=== PATIENT | female | born 1935 | race Caucasian/White ===

== ENCOUNTER 2023-10-18 13:47 | Emergency (ER) | payer MEDICARE, SELFPAY ==
[2023-10-18] VITALS (7 sets, daily range): BP systolic 153–172; BP diastolic 54–74; BMI 19.9
[2023-10-18 14:11] LABS: % Basophils 0.9 % (0-2); % Eosinophils 1.2 % (0-6); % Immature Granulocytes 0.2 % (0-0.5); % Lymphocytes 13.8 % (20.5-51.1); % Monocytes 8.4 % (1.7-9.3); % Neutrophils 75.5 % (42.2-75.2); Absolute Basophils 0.1 10^3/uL (0-0.2); Absolute Eosinophils 0.1 10^3/uL (0-0.7); Absolute Lymphocytes 0.9 10^3/uL (1.2-3.4); Absolute Monocytes 0.6 10^3/uL (0.1-0.6); Hematocrit 36.4 % (37.0-47.0); Hemoglobin 11.9 g/dL (12.0-16.0); Mean Corp Hgb Conc. 32.7 g/dL (33.0-37.0); Mean Corpuscular Hgb 29.2 pg (27.0-31.0); Mean Corpuscular Volume 89.4 fL (81.0-99.0); Mean Platelet Volume 9.1 fL (7.4-10.4); Nucleated Red Blood Cells % 0 %; Platelet Count 267 10^3/uL (130-400); Red Blood Cell Count 4.07 10^6/uL (4.20-5.40); Red Cell Dist. Width 14.5 % (11.5-14.5); White Blood Cell Count 6.7 10^3/uL (4.8-10.8)
[2023-10-18 14:37] LABS: ALT (SGPT) 17 U/L (0-35); AST (SGOT) 27 U/L (14-36); Albumin 4.1 g/dl (3.5-5.0); Alkaline Phosphatase 97 U/L (38-126); Blood Urea Nitrogen 27 mg/dl (7-17); Calcium 9.4 mg/dl (8.4-10.2); Carbon Dioxide 32 mmol/L (22-30); Chloride 99 mmol/L (98-107); Estimated Creatinine Clearance 43 ml/min; Glucose 182 mg/dl (70-99); Potassium 4.1 mmol/L (3.5-5.1); Sodium 138 mmol/L (135-145); Total Bilirubin 0.7 mg/dl (0.2-1.3); Total Protein 6.6 g/dl (6.3-8.2); eGFR > 60.00
[2023-10-18 14:45] LABS: Troponin I < 0.012 ng/ml
--- NOTE | 2023-10-18 15:29 | ED.GENMED ---
History of Present Illness
General
Chief Complaint: Chest Pain
Source: patient and family
Exam Limitations: none
Time Seen by Provider: 10/18/23 15:05
Nursing documentation reviewed up to this point in time: agreed with
History of Present Illness
History of Present Illness:
Patient is an 80-year-old female who presents to the ER from [facility]. Son reports he was called by staff there stated patient send chest pain for the past several days.
Patient is awake alert she is very confused she has no complaints presently.
Review of Systems
Review of Systems
Allergies reviewed?: Yes
Unable to obtain full review of systems at this time due to: dementia
Other source history: residential
All Other Systems: ROS reviewed and negative except as documented in HPI and ROS
Cardiac: Reports chest pain ((chest pain ) as per staff at nursing facility and as per son)
Phy Exam
General Physical Exam
General Presentation: no apparent distress
General age: appears stated age
General Skin: warm and dry
General Habitus: elderly
General Mental: confused
Cardiovascular Exam
Cardiovascular Exam: regular rate/rhythm, no murmur and normal peripheral pulses
Pulmonary Exam
Pulmonary Exam: lungs clear and no respiratory distress
Neurological Exam
Neurological Exam: alert and oriented x3
Musculoskeletal Exam
Musculoskeletal Exam: full ROM
Skin Exam
Skin Exam: normal color and warm/dry
Psychiatric Exam
Psychiatric Exam: normal mood/affect
Scores
Heart Score for Chest Pain Patients
STEMI patient?: Not applicable
Course
Orders/Labs/Results
Orders:
Orders
10/18/23 13:49
Electrocardiogram (*1) Urgent
Reason for Study: Chest Pain
Cardiac Monitoring- Treatment ONCE
EKG- Treatment ONCE
10/18/23 13:59
Complete Blood Count/With Diff Urgent
Comprehensive Metabolic Panel Urgent
Troponin I Urgent
10/18/23 15:06
Chest [CR Chest - 2 Views ] Urgent
Comment:
Reason For Exam: cp
10/18/23 16:26
EKG- Treatment ONCE
10/18/23 16:31
Troponin I Urgent
10/18/23 16:45
Electrocardiogram (*1) Stat
Reason for Study: Other
Other Reason for Exam: chest pain
Abnormal Lab Results
10/18/23
13:59
RBC 4.07 L 10^6/uL
(4.20-5.40)
Hgb 11.9 L g/dL
(12.0-16.0)
Hct 36.4 L %
(37.0-47.0)
MCHC 32.7 L g/dL
(33.0-37.0)
Absolute Lymphs (auto) 0.9 L 10^3/uL
(1.2-3.4)
Neutrophils % 75.5 H %
(42.2-75.2)
Lymphocytes % 13.8 L %
(20.5-51.1)
Carbon Dioxide 32 H mmol/L
(22-30)
BUN 27 H mg/dl
(7-17)
Glucose 182 H mg/dl
(70-99)
10/18/23 13:59
10/18/23 13:59
Vital Signs
Initial and Last Documented VS:
Initial Vital Signs
Temp Pulse Resp BP Pulse Ox
97.8 F 89 18 153/74 97
10/18/23 13:50 10/18/23 13:50 10/18/23 13:50 10/18/23 13:50 10/18/23 13:50
Last Documented Vital Signs
Temp Pulse Resp BP Pulse Ox
97.8 F 62 18 170/58 96
10/18/23 13:50 10/18/23 17:15 10/18/23 17:15 10/18/23 17:15 10/18/23 17:00
MDM/Problems Addressed
MDM/Problems Addressed:
Patient is an 88-year-old female from memory care unit sent for evaluation of chest pain. Apparently as per son /statff at [place] , patient was complaining of chest pain off and on for the past couple days. I tried to speak with someone at nursing
facility but there was no answer. Patient is awake alert she has no complaints now but she is confused. Because of history of dementia patient was monitored here and had 2 negative cardiac troponins. She has no history of IN and is documented has
a history of CAD. She had no complaint of chest pain here in the ER when asked directly. Her x-rays negative for acute findings. She has no complaints of back pain though on x-ray of the chest there is a moderate compression deformity of lower
thoracic vertebral body likely T1 or T12 but chronic most likely low age-indeterminate. She will be placed on the hotline. I did give formation to son who will take patient to the cardiology office and does her appointments.
Chronic conditions affecting care:
dementia
*Radiology
Radiology exam reviewed: radiology read reviewed
*Pulse Oximetry
Patient hypoxic: no
*EKG
Interpreted by ED Provider?: Yes
Interpretation: normal
Comparison EKG: no comparison EKG present
Heart Rate: 67
Rate: normal
Rhythm: sinus
Ischemia: no ischemia
*Critical Care Note
Total Time (30-74mins, 75-104mins- exclusive of procedures): Not Applicable
ED Attending Note
-
Portions of this chart may have been created with voice recognition software.� Occasional wrong word or��sound alike� substitutions may have occurred due to the inherent limitations of voice recognition software.
Discharge Plan
Departure
Patient Disposition: Home (Routine Discharge)
Date of Disposition: 10/18/23
Time of Disposition: 18:02
Patient with high blood pressure during this ER visit?: Yes
Condition: Fair
Covid-19: Not Applicable
Discharge Problem:
Chest pain
Instructions: Chest Pain CBC Follow Up, BLOOD PRESSURE
Referrals:
Carline Laird DO [Family Provider] -
Angel Mondragon MD [Active] -
Activity Restrictions/Additional Instructions:
As discussed, follow-up with cardiology for reevaluation. If you do not receive a phone call from cardiology please call them to schedule an appt as soon as possible for evaluation.
Return if any worsening of symptoms
Interventions
Interventions:
*Risk Screen - Suicide Last Done: 10/18/23 13:50
*General Assessment Last Done: 10/18/23 13:50
*Neglect/Abuse Screening Last Done: 10/18/23 13:50
ED- Fall Risk Assessment Last Done: 10/18/23 13:52
*ED COVID-19 Vaccine History Last Done: 10/18/23 13:50
ED- Cardiac Assessment Last Done: 10/18/23 13:50
ED- Pulmonary Assessment Last Done: 10/18/23 13:52
ED-Skin Assessment Last Done: 10/18/23 13:52
Discharge Date and Time
Print Language: HAITIAN
[2023-10-18 17:22] LABS: Troponin I < 0.012 ng/ml
== END 2023-10-18 18:27 | disposition home or self-care (01) ==
LOC: EMR 13:47
PROVIDERS: Emergency Medicine; Nurse Practitioner; EMERGENCY PHYSICIAN Student in an Organized Health Care Education/Training Program; FAMILY PHYSICIAN Hospitalist
DX: R07.89 Other chest pain (principal); F03.90 Unspecified dementia, unspecified severity, without behavioral disturbance, psychotic disturbance, mood disturbance, and anxiety; I25.10 Atherosclerotic heart disease of native coronary artery without angina pectoris
CPT/HCPCS: 99285; 71046; 80053; 84484; 85025; 93005

== ENCOUNTER 2023-12-28 00:11 | Emergency (ER) | payer MEDICARE, SELFPAY ==
[2023-12-28 00:13] VITALS: BP 141/58
--- NOTE | 2023-12-28 00:49 | ED.GENMED ---
History of Present Illness
General
Chief Complaint: Fall
Source: patient
Exam Limitations: dementia
Time Seen by Provider: 12/28/23 00:31
Nursing documentation reviewed up to this point in time: agreed with
History of Present Illness
History of Present Illness:
88-year-old dementia patient from a dementia unit found on the ground details are unclear here there is no overt signs of trauma follows simple commands states she believes it is 1941 no pain with range of motion of the hips
Past History
Past History
ED Past Medical History: Other (Dementia)
Social History
Tobacco: Other
Alcohol: Other
Drug: Other
Personal: Other
Living: detention
Employment: Not employed
Family History
Family History: Unable to obtain (Dementia)
Review of Systems
Review of Systems
Unable to obtain full review of systems at this time due to: dementia
All Other Systems: Not applicable
Phy Exam
Physical Exam
Physical Exam:
Physical Exam
General: Pleasant cooperative elderly female
Neck: No tongue bite no posterior neck
Heart: Rate is regular
Lungs: no acute respiratory distress. clear bilaterally
Abdomen: Nontender
Neuro: Moves all extremities no facial palsy think since 1941
Skin: no rash
Psychiatric: Affect is flat cooperative
Extremities: No pain with range of motion of the head
Course
Orders/Labs/Results
Orders:
Orders
12/28/23 00:44
CT Cervical Spine W/o Iv Contr Urgent
Comment:
Reason For Exam: fall
CT Head W/o Iv Contrast Urgent
Comment:
Reason For Exam: fall
Cardiac Monitoring- Treatment ONCE
Vital Signs
Initial and Last Documented VS:
Initial Vital Signs
Temp Pulse Resp BP Pulse Ox
99.5 F 76 16 141/58 97
12/28/23 00:13 12/28/23 00:13 12/28/23 00:13 12/28/23 00:13 12/28/23 00:13
Last Documented Vital Signs
Temp Pulse Resp BP Pulse Ox
99.5 F 76 16 141/58 97
12/28/23 00:13 12/28/23 00:13 12/28/23 00:13 12/28/23 00:13 12/28/23 00:13
MDM/Problems Addressed
Differential Diagnosis Includes:
Fall occult trauma dementia
MDM/Problems Addressed:
Found on the ground
Chronic conditions affecting care: Neurological disorder
Acute Exacerbation and/or Progression of Chronic Illness: Neurological disorder
*Radiology
Radiology exam reviewed: radiology read reviewed
*Pulse Oximetry
Patient hypoxic: no
*Critical Care Note
Total Time (30-74mins, 75-104mins- exclusive of procedures): Not Applicable
Update Note
Update Note:
Update, CT reports noted
ED Attending Note
-
Portions of this chart may have been created with voice recognition software.� Occasional wrong word or��sound alike� substitutions may have occurred due to the inherent limitations of voice recognition software.
Discharge Plan
Departure
Patient Disposition: Penitentiary/SNF
Date of Disposition: 12/28/23
Time of Disposition: 01:55
Patient with high blood pressure during this ER visit?: No
Condition: Good
Discharge Problem:
Fall, Dementia
Instructions: Preventing falls in adults
Referrals:
Carline Laird DO [Family Provider] -
Interventions
Interventions:
*Risk Screen - Suicide Last Done: 12/28/23 00:13
*General Assessment Last Done: 12/28/23 00:13
*Neglect/Abuse Screening Last Done: 12/28/23 00:13
Discharge Date and Time
Print Language: MAORI
[2023-12-28 05:24] VITALS: BP 122/79
== END 2023-12-28 05:26 ==
LOC: EMR 00:11
PROVIDERS: EMERGENCY PHYSICIAN Emergency Medicine; FAMILY PHYSICIAN Hospitalist
DX: Z03.89 Encounter for observation for other suspected diseases and conditions ruled out (principal); W19.XXXA Unspecified fall, initial encounter; Y92.89 Other specified places as the place of occurrence of the external cause; F03.90 Unspecified dementia, unspecified severity, without behavioral disturbance, psychotic disturbance, mood disturbance, and anxiety; I25.10 Atherosclerotic heart disease of native coronary artery without angina pectoris; I10 Essential (primary) hypertension; E78.5 Hyperlipidemia, unspecified; F32.A Depression, unspecified
CPT/HCPCS: 99284; 70450; 72125

== ENCOUNTER 2024-02-09 14:45 | Inpatient (IN) | payer MEDICARE, SELFPAY ==
[2024-02-09 10:05] VITALS: BP 124/68
--- NOTE | 2024-02-09 10:20 | ED.GENMED ---
ED Provider Triage
<Josh Yeung PA-C - Last Filed: 02/09/24 10:22>
-
Patient seen by provider in Triage?: Seen in Triage
88-year-old female presents for memory care unit via EMS with complaints of right knee pain. She had difficulty ambulating secondary to pain. No reported fall
Patient limited historian but does have pain about the right knee. Vital signs are stable recommended further evaluation with an x-ray
History of Present Illness
<Josh Yeung PA-C - Last Filed: 02/09/24 10:22>
General
Chief Complaint: Musculo-Skeletal Complaint
Time Seen by Provider: 02/09/24 11:08
<Rylee Granda HEAD OF ACQUISITIONS - Last Filed: 02/09/24 16:01>
General
Source: patient, ambulance crew and assisted records
Exam Limitations: dementia
Nursing documentation reviewed up to this point in time: agreed with
History of Present Illness
History of Present Illness:
88-year-old female from [facility] memory care unit presents for inability to weight-bear on her right leg noted by son yesterday. No known injury or fall. Patient is a poor historian.
Past History
<Josh Yeung PA-C - Last Filed: 02/09/24 10:22>
Past History
ED Past Medical History: Other (Dementia)
Social History
Tobacco: Other
Alcohol: Other
Drug: Other
Personal: Other
Living: assisted
Employment: Not employed
Family History
Family History: Unable to obtain (Dementia)
<Rylee Granda HEAD OF ACQUISITIONS - Last Filed: 02/09/24 16:01>
Past History
ED Past Medical History: CAD, HTN and MS
ED Past Surgical History: Appendectomy
Social History
Tobacco: Non-smoker
Alcohol: None
Review of Systems
<Rylee Granda HEAD OF ACQUISITIONS - Last Filed: 02/09/24 16:01>
Review of Systems
Allergies reviewed?: Yes
All Other Systems: ROS reviewed and negative except as documented in HPI and ROS
Constitutional: Denies fever
Musculoskeletal: Reports other (pain right knee, right hip area)
Skin: Reports no symptoms
Phy Exam
<Rylee Granda HEAD OF ACQUISITIONS - Last Filed: 02/09/24 16:01>
Physical Exam
Physical Exam:
GENERAL: No acute distress. A&Ox3.
CONSTITUTIONAL: Afebrile.
EYES: PERRL, conjunctivae normal
Neck: Supple
ENMT: moist mucus membranes, Pharynx nl
RESPIRATORY: Regular respirations, nonlabored, lungs clear.
CARDIOVASCULAR: Regular rate and rhythm, no murmurs, no rubs.
GI: Soft, nontender, normal BS
MUSCULOSKELETAL: No swelling, warmth or tenderness to palpation of the right knee but pt unable to actively flex the knee without pain pointing to knee area. When passively lifting the leg, complains of pain in the right groin as well as the knee.
Pelvic rock elicits no pain. No edema. Well perfused.
SKIN: Warm, dry, pink
PSYCH: Normal mood and affect. Well kept, interactive and appropriate
NEUROLOGIC: Awake, alert and disoriented. No focal neurological deficits
Course
<Josh eYung PA-C - Last Filed: 02/09/24 10:22>
Orders/Labs/Results
Orders:
Orders
02/09/24 10:20
CR Knee- Right 4 Or More View* Urgent
Comment:
Reason For Exam: pain
02/09/24 11:56
CT Pelvis W/o Iv Contrast Urgent
Comment:
Reason For Exam: pain R groin with lifting leg, walking,pt demented
02/09/24 13:30
CR Chest - 2 Views Urgent
Comment:
Reason For Exam: hip fracture
02/09/24 13:32
ORTHOPEDIC CONSULT Urgent
Consulting Provider: Hermes Portillo
Was physician already notified: Yes
Reason for consult: R femoral neck fx
02/09/24 13:42
Complete Blood Count/With Diff Urgent
Comprehensive Metabolic Panel Urgent
Prothrombin Time Urgent
02/09/24 14:09
EKG [Electrocardiogram (*1)] Routine
Reason for Study: PreOp
02/09/24 14:11
Admit/Transfer Patient As Directed
Co-Sign Provider:
Level of Care: Inpatient admission
Assign to:: Medical/Surgical
Physician / Group: Lorie Owen
Diagnosis: right hip fracture
Reason for Hospitalization: right hip fracture
Expected length of stay greater than two midnights?: Yes
ELOS- Estimated Length of Stay in days: 3
I certify the patient meets the requirements for IP care: Yes
PRN Pain Medication Management As Directed
May give lesser potent ordered pain med per pt: Yes
preference::
Protocol:: Medication orders for pain may be administered in a
manner that supports deferring to patient preference
when the pt is:
- Requesting an ordered lesser potent pain medication.
Least to most potent pain medications are defined
as: acetaminophen < NSAID < tramadol < opioids
(morphine, oxycodone, hydromorphone).
- Requesting a lesser dose of the same medication IF
ORDERED.
- Requesting a less intrusive route of administration
if both routes are prescribed by the provider (PO <
IV).
02/09/24 14:12
Code Status As Directed
Resuscitation Status: Full Code
Abnormal Lab Results
02/09/24
13:42
WBC 12.4 H 10^3/uL
(4.8-10.8)
RBC 4.09 L 10^6/uL
(4.20-5.40)
Hct 36.4 L %
(37.0-47.0)
RDW 17.4 H %
(11.5-14.5)
Abs Immat Gran (auto) 0.1 H 10^3/uL
(0-0.05)
Absolute Neuts (auto) 11.2 H 10^3/uL
(1.4-6.5)
Absolute Lymphs (auto) 0.5 L 10^3/uL
(1.2-3.4)
Neutrophils % 90.8 H %
(42.2-75.2)
Lymphocytes % 3.6 L %
(20.5-51.1)
Chloride 97 L mmol/L
(98-107)
Carbon Dioxide 31 H mmol/L
(22-30)
BUN 19 H mg/dl
(7-17)
Glucose 133 H mg/dl
(70-99)
02/09/24 13:42
02/09/24 13:42
Vital Signs
Initial and Last Documented VS:
Initial Vital Signs
Temp Pulse Resp BP Pulse Ox
99.2 F 88 16 124/68 96
02/09/24 10:05 02/09/24 10:05 02/09/24 10:05 02/09/24 10:05 02/09/24 10:05
Last Documented Vital Signs
Temp Pulse Resp BP Pulse Ox
99.2 F 80 16 156/61 92
02/09/24 10:05 02/09/24 13:47 02/09/24 13:47 02/09/24 13:47 02/09/24 13:47
Brianalt;Rylee Granda, HEAD OF ACQUISITIONS - Last Filed: 02/09/24 16:01>
Orders/Labs/Results
Orders:
Orders
02/09/24 10:20
CR Knee- Right 4 Or More View* Urgent
Comment:
Reason For Exam: pain
02/09/24 11:56
CT Pelvis W/o Iv Contrast Urgent
Comment:
Reason For Exam: pain R groin with lifting leg, walking,pt demented
02/09/24 13:30
CR Chest - 2 Views Urgent
Comment:
Reason For Exam: hip fracture
02/09/24 13:32
ORTHOPEDIC CONSULT Urgent
Consulting Provider: Hermes Portillo
Was physician already notified: Yes
Reason for consult: R femoral neck fx
02/09/24 13:42
Complete Blood Count/With Diff Urgent
Comprehensive Metabolic Panel Urgent
Prothrombin Time Urgent
02/09/24 14:09
EKG [Electrocardiogram (*1)] Routine
Reason for Study: PreOp
02/09/24 14:11
Admit/Transfer Patient As Directed
Co-Sign Provider:
Level of Care: Inpatient admission
Assign to:: Medical/Surgical
Physician / Group: Lorie Owen
Diagnosis: right hip fracture
Reason for Hospitalization: right hip fracture
Expected length of stay greater than two midnights?: Yes
ELOS- Estimated Length of Stay in days: 3
I certify the patient meets the requirements for IP care: Yes
PRN Pain Medication Management As Directed
May give lesser potent ordered pain med per pt: Yes
preference::
Protocol:: Medication orders for pain may be administered in a
manner that supports deferring to patient preference
when the pt is:
- Requesting an ordered lesser potent pain medication.
Least to most potent pain medications are defined
as: acetaminophen < NSAID < tramadol < opioids
(morphine, oxycodone, hydromorphone).
- Requesting a lesser dose of the same medication IF
ORDERED.
- Requesting a less intrusive route of administration
if both routes are prescribed by the provider (PO <
IV).
02/09/24 14:12
Code Status As Directed
Resuscitation Status: Full Code
Abnormal Lab Results
02/09/24
13:42
WBC 12.4 H 10^3/uL
(4.8-10.8)
RBC 4.09 L 10^6/uL
(4.20-5.40)
Hct 36.4 L %
(37.0-47.0)
RDW 17.4 H %
(11.5-14.5)
Abs Immat Gran (auto) 0.1 H 10^3/uL
(0-0.05)
Absolute Neuts (auto) 11.2 H 10^3/uL
(1.4-6.5)
Absolute Lymphs (auto) 0.5 L 10^3/uL
(1.2-3.4)
Neutrophils % 90.8 H %
(42.2-75.2)
Lymphocytes % 3.6 L %
(20.5-51.1)
Chloride 97 L mmol/L
(98-107)
Carbon Dioxide 31 H mmol/L
(22-30)
BUN 19 H mg/dl
(7-17)
Glucose 133 H mg/dl
(70-99)
02/09/24 13:42
02/09/24 13:42
Vital Signs
Initial and Last Documented VS:
Initial Vital Signs
Temp Pulse Resp BP Pulse Ox
99.2 F 88 16 124/68 96
02/09/24 10:05 02/09/24 10:05 02/09/24 10:05 02/09/24 10:05 02/09/24 10:05
Last Documented Vital Signs
Temp Pulse Resp BP Pulse Ox
99.2 F 80 16 156/61 92
02/09/24 10:05 02/09/24 13:47 02/09/24 13:47 02/09/24 13:47 02/09/24 13:47
<Rylee Granda NP - Last Filed: 02/09/24 16:01>
MDM/Problems Addressed
Differential Diagnosis Includes:
knee sprain, effusion, pelvic fx/strain
MDM/Problems Addressed:
88-year-old female from [facility] unit presents for inability to weight-bear on her right leg noted by son yesterday. No known injury or fall.
NAD, pleasant, demented, poor historian
IMPRESSION:
No acute osseous abnormality.
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
1:30 PM:
CT pelvis reveals a displaced right femoral neck fracture
Chronic conditions affecting care: HTN and Other (Dementia)
<Rylee Granda NP - Last Filed: 02/09/24 16:01>
*Critical Care Note
Total Time (30-74mins, 75-104mins- exclusive of procedures): Not Applicable
ED Attending Note
<Josh Yeung PA-C - Last Filed: 02/09/24 10:22>
-
Portions of this chart may have been created with voice recognition software.� Occasional wrong word or��sound alike� substitutions may have occurred due to the inherent limitations of voice recognition software.
Discharge Plan
Departure
Patient Disposition: Admit
Date of Disposition: 02/09/24
Time of Disposition: 13:28
Admit to: Med/Surg
Presentation/result/management discussed w/ accepting MD/DO: Hospitalist
Condition: Good
Discharge Problem:
Displaced fracture of right femoral neck
Interventions
Interventions:
*Risk Screen - Suicide Last Done: 02/09/24 10:21
*General Assessment Last Done: 02/09/24 10:21
*Neglect/Abuse Screening Last Done: 02/09/24 10:21
ED- Fall Risk Assessment Last Done: 02/09/24 14:02
ED-Musculoskeletal Assessment Last Done: 02/09/24 11:14
[2024-02-09 11:54] VITALS: BMI 19.9
[2024-02-09 13:47] VITALS: BP 156/61
[2024-02-09 13:52] LABS: % Basophils 0.3 % (0-2); % Eosinophils 0.2 % (0-6); % Immature Granulocytes 0.5 % (0-0.5); % Lymphocytes 3.6 % (20.5-51.1); % Monocytes 4.6 % (1.7-9.3); % Neutrophils 90.8 % (42.2-75.2); Absolute Immature Granulocytes 0.1 10^3/uL (0-0.05); Absolute Lymphocytes 0.5 10^3/uL (1.2-3.4); Absolute Monocytes 0.6 10^3/uL (0.1-0.6); Absolute Neutrophils 11.2 10^3/uL (1.4-6.5); Hematocrit 36.4 % (37.0-47.0); Mean Corpuscular Hgb 29.3 pg (27.0-31.0); Nucleated Red Blood Cells % 0 %; Platelet Count 266 10^3/uL (130-400); Red Blood Cell Count 4.09 10^6/uL (4.20-5.40); Red Cell Dist. Width 17.4 % (11.5-14.5); White Blood Cell Count 12.4 10^3/uL (4.8-10.8)
--- NOTE | 2024-02-09 13:53 | HPS.HSE ---
Addendum entered and electronically signed by Lorie Owen MD 02/09/24 14:25:
reactive leukocytosis
-no e/o infection
-monitor
Original Note:
Family Physician
-
Family Physician: NOT KNOW UNKNOWN - PT DOES
Chief Complaint
-
right knee pain
History of Present Illness
Ms. Jessica Bergeron is a 88 yo woman with hx dementia, resident of memory care unit, HTN, HLD presents to the ER complaining of right knee pain.
Unable to obtain history from patient secondary to severe dementia. Her son was visiting with her yesterday and she walked with him per EMS. No reported falls and now cannot bear weight.
Patient states she has a little bit of pain when asked.
I was able to get in touch with son. Patient has no cardiac history, no recent reports of chest pain. No fevers/chills/congestion or abdominal pain. She was in [facility].
Medical History
Past Medical History
Past Medical History: Reports Other (dementia, resident of memory care unit, CAD, HTN, HLD)
Past Surgical History: Reports Appendectomy
Social History
Unable to obtain full social history at this time due to: Dementia
Family History
Family History: Not pertinent
Allergies / Home Medications
Allergies reflects when Allergies were last updated in [facility].
Home Medications with original date entered in [facility]
Allergy/Medication List:
Allergies
Allergy/AdvReac Type Severity Reaction Status Date / Time
No Known Allergies Allergy Verified 02/09/24 10:21
Home Medications
cholecalciferol (vitamin D3) 50 mcg (2,000 unit) capsule (Vitamin D3) 50 mcg PO DAILY 02/09/24
colchicine 0.6 mg tablet 0.6 mg PO DAILY 02/09/24
cyanocobalamin (vitamin B-12) 1,000 mcg tablet (Vitamin B-12) 1,000 mcg PO DAILY 02/09/24
docusate sodium 100 mg capsule 100 mg PO DAILY 02/09/24
furosemide 20 mg tablet 20 mg PO DAILY 02/09/24
rosuvastatin 20 mg tablet 20 mg PO DAILY 02/09/24
trazodone 50 mg tablet 50 mg PO HS 02/09/24
Review of Systems
-
History Source: Patient
A 12 point ROS was completed and negative except as noted: Yes
Physical Exam
Vital Signs
Vital Signs
Temp Pulse Resp BP Pulse Ox
99.2 F 80 16 156/61 92
02/09/24 10:05 02/09/24 13:47 02/09/24 13:47 02/09/24 13:47 02/09/24 13:47
Physical Exam
General: No Apparent Distress and Other (frail appearing )
HEENT: PERRLA
Respiratory: Clear; No Wheezes
Cardiac: S1/S2 and Regular Rhythm
GI: Soft and Non Tender
Musculoskeletal: No Edema
Skin: Warm and Dry; No Rash
Neuro: Awake and Alert; No Oriented
Psych: Apparent Dementia
Laboratory Results
-
02/09/24 13:42
Data Reviewed
-
Diagnostic Radiology: Report Reviewed by me
Lab Data: Labs Reviewed by me
Impression/Plan
-
Ms. Jessica Bergeron is a 88 yo woman with hx dementia, resident of memory care unit, HTN, HLD presents to the ER complaining of right knee pain. No report of fall.
Triage VS: T 99.2, P 88, RR 16, BP 124/68, SpO2 96%
LABS: WBC 12.4, Hg 12, PLT 266
Right Knee X-Ray
IMPRESSION:
No acute osseous abnormality.
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
Pelvis CT:
IMPRESSION:
Displaced right femoral neck fracture.
Colonic diverticulosis.
Displaced Right Femoral Neck Fracture
-admit to med/surg
-discussed with Dr. Portillo, will make NPO after MN for OR tomorrow
-standing oral tylenol
-IV morphine PRN
-SCD's for DVT PPx pre-op
-pre-op EKG
-Flynn perioperatisk risk 2.7%- benefits of surgery outweigh risks - discussed with son - patient medically optimized for surgery.
-hold INTELLIGENCE RESEARCH SPECIALIST Lasix while NPO
Dementia
-fall precautions
-son will need to consent for OR
HLD
-INTELLIGENCE RESEARCH SPECIALIST statin
FULL CODE - confirmed with son on admission
76 minutes spent on patient care
[2024-02-09 14:03] LABS: ALT (SGPT) 24 U/L (0-35); AST (SGOT) 32 U/L (14-36); Albumin 3.9 g/dl (3.5-5.0); Alkaline Phosphatase 102 U/L (38-126); Blood Urea Nitrogen 19 mg/dl (7-17); Calcium 8.9 mg/dl (8.4-10.2); Carbon Dioxide 31 mmol/L (22-30); Chloride 97 mmol/L (98-107); Estimated Creatinine Clearance 49 ml/min; Glucose 133 mg/dl (70-99); Sodium 139 mmol/L (135-145); Total Bilirubin 1.2 mg/dl (0.2-1.3); Total Protein 6.6 g/dl (6.3-8.2); eGFR > 60.00
[2024-02-09 15:18] LABS: INR 1.13; PT 14.5 Sec (11.4-14.6)
[2024-02-09 17:40] VITALS: BP 162/67
--- NOTE | 2024-02-09 17:43 | CON.ORTHO ---
Consultation - Orthopedics
History
Ms Bergeron is a 88F with PMH dementia, resident of memory care unit, HTN, HLD presents to the ER complaining of right hip pain. Her son is present and provides history. He states yesterday he and his mother went for a walk around her home, and she
had no unusual difficulty ambulating. She uses a walker at baseline. There was no documentation of a fall at her home. Patient is oriented to self. She denies pain in any other location, states she has no numbness/tingling.
PE: skin intact, no obvious deformity
Tender to palpation right hip
Knee ROM deferred; normal painless ankle ROM
5/5 ankle strength
Sensation intact distally
Palpable DP/PT pulses, toes warm and well perfused, brisk capillary refill
CT pelvis notable for displaced right femoral neck fracture
Allergies / Home Medications
Allergy/AdvReac Type Severity Reaction Status Date / Time
No Known Allergies Allergy Verified 02/09/24 10:21
�Medication �Instructions �Recorded
acetaminophen 325 mg tablet 650 mg PO Q8HPRN PRN mild pain 02/09/24
(Tylenol)
aripiprazole 5 mg tablet 5 mg PO DAILY Mental Health/Anxiety 02/09/24
aspirin 81 mg tablet,delayed 81 mg PO DAILY Blood Clot 02/09/24
release Prevention/Tx
cholecalciferol (vitamin D3) 50 50 mcg PO DAILY Supplement 02/09/24
mcg (2,000 unit) capsule (Vitamin
D3)
cyanocobalamin (vitamin B-12) 1,000 mcg PO DAILY Supplement 02/09/24
1,000 mcg tablet (Vitamin B-12)
dextromethorphan-guaifenesin 10 10 ml PO Q4HPRN PRN cough 02/09/24
mg-100 mg/5 mL oral liquid
docusate sodium 100 mg capsule 100 mg PO DAILY Constipation 02/09/24
furosemide 20 mg tablet 20 mg PO DAILY Fluid 02/09/24
Retention/Swelling
polyethylene glycol 3350 17 gram 17 g PO DAILYPRN PRN constipation 02/09/24
oral powder packet (Miralax)
rosuvastatin 20 mg tablet 20 mg PO DAILY High Cholesterol 02/09/24
trazodone 50 mg tablet 50 mg PO HS sleep 02/09/24
Vital Signs / Lab Results
Temp Pulse Resp BP Pulse Ox
99.2 F 85 17 162/67 91
02/09/24 17:40 02/09/24 17:40 02/09/24 17:40 02/09/24 17:40 02/09/24 17:40
02/09/24 13:42
02/09/24 13:42
Assessment / Plan
Ms Bergeron is a 88F with right femoral neck fracture. Discussion was held with the son and patient. Conservative treatment of hip fractures leads to prolonged bed bound status with unacceptable complications, so the son and patient opted for right
hip hemiarthroplaty. We will add her on for right hip hemiarthroplasty . Consent has been signed.
NPO at midnight
Hold anticoagulation
Medical clearance requested
Pending Xr R hip
[2024-02-09] MEDS: TYLENOL 1000 MG PO ×2 (18:41→22:48)
[2024-02-09] MEDS: DESYREL 50 MG PO (22:48)
[2024-02-10] VITALS (11 sets, daily range): BP systolic 112–146; BP diastolic 46–65
[2024-02-10 05:59] LABS: Hematocrit 33.6 % (37.0-47.0); Hemoglobin 11.1 g/dL (12.0-16.0); Mean Corpuscular Hgb 30.6 pg (27.0-31.0); Mean Corpuscular Volume 92.6 fL (81.0-99.0); Mean Platelet Volume 9.4 fL (7.4-10.4); Platelet Count 211 10^3/uL (130-400); Red Blood Cell Count 3.63 10^6/uL (4.20-5.40); Red Cell Dist. Width 17.2 % (11.5-14.5); White Blood Cell Count 9.1 10^3/uL (4.8-10.8)
[2024-02-10 06:15] LABS: Blood Urea Nitrogen 19 mg/dl (7-17); Calcium 8.7 mg/dl (8.4-10.2); Carbon Dioxide 33 mmol/L (22-30); Chloride 100 mmol/L (98-107); Estimated Creatinine Clearance 49 ml/min; Glucose 97 mg/dl (70-99); Magnesium 2.1 mg/dl (1.6-2.3); Potassium 3.7 mmol/L (3.5-5.1); Sodium 140 mmol/L (135-145); eGFR > 60.00
--- NOTE | 2024-02-10 07:30 | W.PN.HOSP.TC ---
Today's Communication/Plan
-
NPO right hemiarthroplasty today as per Orthopedic
benefits of surgical procedure outweigh risk
cont pain control
bedrest prior to procedure
postoperative care as per orthopedic
Assessment / Plan
Assessment / Plan
Physical Exam
General: No Apparent Distress frail appearing
HEENT: Normocephalic Atraumatic on nasal cannula supplementation
Respiratory: Clear; No Wheezes; non-labored respiration
Cardiac: S1/S2 and Regular Rhythm
GI: Soft and Non Tender
Musculoskeletal: No Edema, right leg shorter compared to left
Skin: Warm and Dry; No Rash
Neuro: AOx1 oriented only to self
Psych: Apparent Dementia, calm, pleasant, cooperative
88F Dementia resident of memory care unit, HTN, HLD presents to the ER complaining of right knee pain. No report of fall.
Triage VS: T 99.2, P 88, RR 16, BP 124/68, SpO2 96%
LABS: WBC 12.4, Hg 12, PLT 266
Right Knee X-Ray
IMPRESSION:
No acute osseous abnormality.
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
Pelvis CT:
IMPRESSION:
Displaced right femoral neck fracture.
Colonic diverticulosis.
Displaced Right Femoral Neck Fracture
-med/surg admit
-Ortho eval appreciated NPO for right hip hemiarthroplasty today 02/09
-standing oral tylenol
-IV morphine PRN
-SCD's for DVT PPx pre-op
-pre-op EKG NSR left fascicular block otherwise no significant change compared to prior EKG October 18 2023
-Flynn perioperatisk risk 2.7%- benefits of surgery outweigh risks
-hold DISHWASHER BUSSER Lasix while NPO
Dementia
-fall precautions
-son will need to consent for OR
HLD
-DISHWASHER BUSSER statin
Leukocytosis stress reactive since resolved without need for abx
Full Code
Discussed with patient and patient's son Bryce
I spent a total of 50 minutes with the patient or on the floor. More than 50% of this time involved counseling and coordination of care.
Anticipated Discharge: > 48 hours
Subjective/Interval History
-
Date of Service: February 10, 2024
Seen and examined at bedside in no acute distress sitting up comfortably in bed. AOx1 oriented to self only. Pain well controlled at this time. Son Bryce present during evaluation.
Objective Data
-
Labs:
Laboratory Results
02/10/24
05:10
WBC 9.1
Hgb 11.1 L
Hct 33.6 L
Plt Count 211 D
Sodium 140
Potassium 3.7
Chloride 100
Carbon Dioxide 33 H
BUN 19 H
Creatinine 0.7
Glucose 97
Calcium 8.7
Vital Signs:
Vital Signs
Temp Pulse Resp BP Pulse Ox
98.0 F 66 16 117/47 98
02/10/24 00:11 02/10/24 00:11 02/10/24 00:11 02/10/24 00:11 02/10/24 00:11
I&O
02/09/24 02/10/24 02/11/24
06:59 06:59 06:59
Intake Total 200 / 200
Output Total 150 / 150
Balance 50 / 50
--- NOTE | 2024-02-10 07:48 | W.PN.UPDATE ---
Update Note
Progress Note Update
Patient is on the OR schedule for right hip hemiarthroplasty later today. Pain was controlled overnight. She is going to be n.p.o., Ancef, IV/TXA irrigation to the OR for later today.
[2024-02-10] MEDS: TYLENOL 1000 MG PO ×2 (09:04→22:29)
[2024-02-10] MEDS: COLCHICINE 0.6 MG PO (09:05)
[2024-02-10] MEDS: CRESTOR 20 MG PO (09:05)
[2024-02-10] MEDS: ABILIFY 5 MG PO (09:05)
[2024-02-10] MEDS: COLACE 100 MG PO ×2 (09:09→20:28)
[2024-02-10] MEDS: MORPHINE SULFATE 2 MG IV (09:10)
--- NOTE | 2024-02-10 15:52 | CM ---
Alert awake confused patient who lives in memory care at [facility]. Son Catalino present for IA information.She is in memory care and assisted in all activities of life.She uses a walker. Pt fx right hip and has surgery today.Will need Postop PT OT
ordered for dc plan.
had [facility]/No SNF hx
Pharmacy [facility] .
PCP Dr Laird
PLAN Postop PT OT needed for dc plan
--- NOTE | 2024-02-10 18:29 | W.IMMPOSTOP ---
Surgical Immed Post Op Note
-
Primary Surgeon: Hermes Portillo MD
Assisting Surgeon: Juan Millan MD
Pre-op Diagnosis: Right femoral neck fracture
Post-op Diagnosis: Right femoral neck fracture
Procedure Performed: Right hip hemiarthroplasty
Anesthesia Type: general
Specimen / Cultures: none
Estimated Blood Loss: 100mL
Complications: none apparent
Operative Findings: femoral neck fracture
Operative dictation # [id number]
PT: WBAT
DVT PPX: ASA 325
[2024-02-10] MEDS: ROXICODONE 5 MG PO (19:03)
[2024-02-10] MEDS: TYLENOL PO (20:25)
[2024-02-10] MEDS: SENOKOT 17.2 MG PO (20:28)
[2024-02-10] MEDS: ASPIRIN 325 MG PO (20:31)
[2024-02-10] MEDS: BACTROBAN 2% OINTMENT 1 APPLIC NASAL (21:55)
[2024-02-10] MEDS: DESYREL 50 MG PO (22:29)
[2024-02-10] MEDS: ANCEF 5 IV (23:30)
--- NOTE | 2024-02-11 00:06 | PTCARENOTE ---
19:25 pt rec'vd drowsy, alert to verbal, Pts son at the bedside. Pt oriented to unit is forgetful and confused however is able to make needs known and denies pain at this time. vs stable, hob elevated with 02 pulse ox 98%. right hip CDI.
[2024-02-11] MEDS: FLOMAX 0.4 MG PO (01:44)
[2024-02-11 03:00] VITALS: BP 108/48
--- NOTE | 2024-02-11 03:35 | SUR.OPER ---
03:27assist x2 with walker ambulated 10 feet
[2024-02-11 05:46] LABS: Hematocrit 33.3 % (37.0-47.0); Hemoglobin 10.7 g/dL (12.0-16.0); Mean Corp Hgb Conc. 32.1 g/dL (33.0-37.0); Mean Corpuscular Hgb 29.4 pg (27.0-31.0); Mean Corpuscular Volume 91.5 fL (81.0-99.0); Mean Platelet Volume 9.9 fL (7.4-10.4); Platelet Count 216 10^3/uL (130-400); Red Blood Cell Count 3.64 10^6/uL (4.20-5.40); White Blood Cell Count 11.3 10^3/uL (4.8-10.8)
[2024-02-11 06:07] LABS: Blood Urea Nitrogen 31 mg/dl (7-17); Calcium 8.6 mg/dl (8.4-10.2); Carbon Dioxide 27 mmol/L (22-30); Chloride 99 mmol/L (98-107); Estimated Creatinine Clearance 49 ml/min; Glucose 130 mg/dl (70-99); Magnesium 2.2 mg/dl (1.6-2.3); Phosphorus 4.4 mg/dl (2.5-4.5); Potassium 4.2 mmol/L (3.5-5.1); Sodium 138 mmol/L (135-145); eGFR > 60.00
--- NOTE | 2024-02-11 07:22 | W.PN.HOSP.TC ---
Today's Communication/Plan
-
pain control
PT/OT
ASA dvt ppx as per Orthopedic
wound care
Assessment / Plan
Assessment / Plan
Physical Exam
General: No Apparent Distress frail appearing
HEENT: Normocephalic Atraumatic on nasal cannula supplementation
Respiratory: Clear; No Wheezes; non-labored respiration
Cardiac: S1/S2 and Regular Rhythm
GI: Soft and Non Tender
Musculoskeletal: No Edema, right leg shorter compared to left
Skin: Warm and Dry; No Rash
Neuro: AOx1 oriented only to self
Psych: Apparent Dementia, calm, pleasant, cooperative
88F Dementia resident of memory care unit, HTN, HLD presents to the ER complaining of right knee pain. No report of fall.
Triage VS: T 99.2, P 88, RR 16, BP 124/68, SpO2 96%
LABS: WBC 12.4, Hg 12, PLT 266
Right Knee X-Ray
IMPRESSION:
No acute osseous abnormality.
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
Pelvis CT:
IMPRESSION:
Displaced right femoral neck fracture.
Colonic diverticulosis.
Displaced Right Femoral Neck Fracture
-med/surg admit
-Ortho eval appreciated s/p right hip hemiarthroplasty 02/09 WBAT RLE w/ posterior precautions
-pain control standing oral tylenol, PRN oxycodone Dilaudid as per Orthopedic
-ASA DVT ppx 30 days as per Orthopedic
-hold SUPERVISOR EPOXY FABRICATION Lasix while NPO
Dementia
-fall precautions
HLD
-SUPERVISOR EPOXY FABRICATION statin
Leukocytosis stress reactive since resolved without need for abx
PT/OT appreciated SNF rehab
Full Code
Discussed with patient and patient's son Bryce
I spent a total of 50 minutes with the patient or on the floor. More than 50% of this time involved counseling and coordination of care.
Anticipated Discharge: 24 - 48 hours
Subjective/Interval History
-
Date of Service: February 11, 2024
No acute distress appears comfortable at this time. Reports some indigestion following breakfast but otherwise feels well. Pain well controlled at this time.
Objective Data
-
Labs:
Laboratory Results
02/11/24
04:51
WBC 11.3 H
Hgb 10.7 L
Hct 33.3 L
Plt Count 216
Sodium 138
Potassium 4.2
Chloride 99
Carbon Dioxide 27
BUN 31 H
Creatinine 0.7
Glucose 130 H
Calcium 8.6
Vital Signs:
Vital Signs
Temp Pulse Resp BP Pulse Ox
97.7 F 63 12 108/48 99
02/11/24 03:00 02/11/24 03:00 02/11/24 03:00 02/11/24 03:00 02/11/24 03:00
I&O
02/10/24 02/11/24 02/12/24
06:59 06:59 06:59
Intake Total 200 / 200 150 / 150
Output Total 150 / 150
Balance 50 / 50 150 / 150
[2024-02-11 07:44] VITALS: BP 116/46
--- NOTE | 2024-02-11 07:58 | W.PN.ORTHO ---
Today's Communication / Plan
-
88F POD 1 Right hip hemiarthroplasty with Dr. Portillo
-Weightbearing as tolerated to right lower extremity; posterior precautions
-PT/OT/discharge planning.
-ASA 325 daily for 30 days and last recommended otherwise per primary for DVT prophylaxis
-Pain control current regimen
-Abductor pillow and brace and tolerating well
-Diet per primary
Orthopedic surgery continue to follow
Assessment
.
Distal Motor Intact: Yes
Dressing:
Clean, dry and intact.
Assessment:
postoperative imaging shows s/p R cemented hip hemiarthroplasty without evidence of osseous or hardware complication
Plan
.
Surgery / Date: R hip hemiarthroplasty 02/10/2024 (Dr. Portillo)
DVT Prophylaxis: Aspirin
Activity:
Out of bed.
PT/OT
Subjective
.
.:
Patient resting comfortably.
Vital Signs and Labs
.
Vital Signs and Labs:
Lab Results
02/11/24 04:51
02/11/24 04:51
Temp Pulse Resp BP Pulse Ox
97.8 F 68 14 116/46 99
02/11/24 07:44 02/11/24 07:44 02/11/24 07:44 02/11/24 07:44 02/11/24 07:44
PT 14.5 Sec (11.4-14.6) 02/09/24 13:42
INR 1.13 02/09/24 13:42
Non-invasive Hgb result: 10.4
[2024-02-11] MEDS: ABILIFY 5 MG PO (08:42)
[2024-02-11] MEDS: ANCEF 5 IV (08:42)
[2024-02-11] MEDS: TYLENOL 1000 MG PO ×3 (08:43→21:30)
[2024-02-11] MEDS: CRESTOR 20 MG PO (08:43)
[2024-02-11] MEDS: COLACE 100 MG PO ×2 (08:43→21:30)
[2024-02-11] MEDS: COLCHICINE 0.6 MG PO (08:43)
[2024-02-11] MEDS: BACTROBAN 2% OINTMENT 1 APPLIC NASAL ×2 (08:43→21:30)
[2024-02-11] MEDS: SENOKOT 17.2 MG PO ×2 (08:43→21:30)
[2024-02-11] MEDS: ASPIRIN 325 MG PO (08:43)
[2024-02-11 09:44] VITALS: BP 160/65; BP 160/68; PULSE 82
[2024-02-11] MEDS: MAALOX 30 ML PO (10:18)
[2024-02-11 11:27] VITALS: BP 102/39
--- NOTE | 2024-02-11 14:32 | CM ---
Case management following for discharge planning
PT/OT recs -SNF
Spoke with pts dara Villanueva at bedside [phone]
Discussed SNF options - prefers [facility] or [facility]
Given option list from Medicare.gov
Will send referrals in Care Port
Plan - SNF when bed obtained
[2024-02-11 15:09] VITALS: BP 108/43
[2024-02-11] MEDS: DESYREL 50 MG PO (21:30)
[2024-02-11 23:46] VITALS: BP 126/61
[2024-02-12 05:24] LABS: Hemoglobin 9.8 g/dL (12.0-16.0); Mean Corp Hgb Conc. 32.7 g/dL (33.0-37.0); Mean Corpuscular Hgb 29.4 pg (27.0-31.0); Mean Corpuscular Volume 90.1 fL (81.0-99.0); Mean Platelet Volume 9.6 fL (7.4-10.4); Platelet Count 229 10^3/uL (130-400); Red Blood Cell Count 3.33 10^6/uL (4.20-5.40); White Blood Cell Count 7.9 10^3/uL (4.8-10.8)
[2024-02-12 05:49] LABS: Blood Urea Nitrogen 26 mg/dl (7-17); Calcium 8.4 mg/dl (8.4-10.2); Carbon Dioxide 33 mmol/L (22-30); Chloride 97 mmol/L (98-107); Estimated Creatinine Clearance 57 ml/min; Glucose 112 mg/dl (70-99); Phosphorus 2.3 mg/dl (2.5-4.5); Potassium 3.9 mmol/L (3.5-5.1); Sodium 136 mmol/L (135-145); eGFR > 60.00
--- NOTE | 2024-02-12 07:47 | W.PN.HOSP.TC ---
Today's Communication/Plan
-
pain control
PT/OT
DVT ppx
discharge planning SNF rehab
Assessment / Plan
Assessment / Plan
Physical Exam
General: No Apparent Distress frail appearing
HEENT: Normocephalic Atraumatic on nasal cannula supplementation
Respiratory: Clear; No Wheezes; non-labored respiration
Cardiac: S1/S2 and Regular Rhythm
GI: Soft and Non Tender
Musculoskeletal: No Edema
Skin: Warm and Dry; No Rash
Neuro: AOx1 oriented only to self
Psych: Apparent Dementia, calm, pleasant, cooperative
88F Dementia resident of memory care unit, HTN, HLD presents to the ER complaining of right knee pain. No report of fall.
Right Knee X-Ray
IMPRESSION:
No acute osseous abnormality.
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
Pelvis CT:
IMPRESSION:
Displaced right femoral neck fracture.
Colonic diverticulosis.
Displaced Right Femoral Neck Fracture
-med/surg admit
-Ortho eval appreciated s/p right hip hemiarthroplasty 02/09 WBAT RLE w/ posterior precautions
-pain control standing oral tylenol, PRN oxycodone Dilaudid as per Orthopedic
-ASA DVT ppx 30 days as per Orthopedic
-held AIR BRAKE MECHANIC Lasix while NPO, resumed with diet.
Dementia
-fall precautions
HLD
-AIR BRAKE MECHANIC statin
Leukocytosis stress reactive since resolved without need for abx
PT/OT appreciated SNF rehab
Full Code
Discussed with patient and patient's son Bryce
I spent a total of 35 minutes with the patient or on the floor. More than 50% of this time involved counseling and coordination of care.
Anticipated Discharge: 24 - 48 hours
Subjective/Interval History
-
Date of Service: February 12, 2024
No acute distress. Appears comfortable sitting up in bed.
Objective Data
-
Labs:
Laboratory Results
02/12/24
05:02
WBC 7.9
Hgb 9.8 L
Hct 30.0 L
Plt Count 229
Sodium 136
Potassium 3.9
Chloride 97 L
Carbon Dioxide 33 H
BUN 26 H
Creatinine 0.6
Glucose 112 H
Calcium 8.4
Vital Signs:
Vital Signs
Temp Pulse Resp BP Pulse Ox
98.6 F 90 16 126/61 94
02/11/24 23:46 02/11/24 23:46 02/11/24 23:46 02/11/24 23:46 02/12/24 00:06
I&O
02/11/24 02/12/24 02/13/24
06:59 06:59 06:59
Intake Total 150 / 150 720 / 720
Balance 150 / 150 720 / 720
[2024-02-12 07:55] VITALS: BP 150/83
--- NOTE | 2024-02-12 08:45 | W.PN.ORTHO ---
Today's Communication / Plan
-
88F POD2 Right hip hemiarthroplasty with Dr. Portillo
-Weightbearing as tolerated to right lower extremity; posterior hip precautions. Ambulate with assistive device
-PT/OT
-Recommend aspirin 325mg daily x4 weeks postop for DVT prophylaxis
-Continue with pain control as needed. May apply ice for edema control
-Dressing to remain in place for 7-10 days
-Case management consult for discharge planning
-Follow up outpatient in 2 weeks
-Patient is orthopedically stable. Will sign off. Please reach out with any additional questions or concerns
Assessment
.
Distal Motor Intact: Yes
Dressing:
Clean, dry and intact.
Plan
.
Surgery / Date: R hip hemiarthroplasty 02/10/2024 (Dr. Portillo)
DVT Prophylaxis: Aspirin
Activity:
Out of bed.
PT/OT
Subjective
.
.:
Patient resting comfortably in bed this morning
Vital Signs and Labs
.
Vital Signs and Labs:
Lab Results
02/12/24 05:02
02/12/24 05:02
Temp Pulse Resp BP Pulse Ox
98.4 F 86 12 150/83 93
02/12/24 07:55 02/12/24 07:55 02/12/24 07:55 02/12/24 07:55 02/12/24 07:55
PT 14.5 Sec (11.4-14.6) 02/09/24 13:42
INR 1.13 02/09/24 13:42
Non-invasive Hgb result: 10.4
Physical Exam
-
Directed exam of right hip reveals surgical dressing in place which is clean, dry, and intact. Mild expected edema. thigh is soft and compressible. ROM decreased due to pain. calf soft and nontender. able to plantar/dorsiflex the ankle. NVI distally
[2024-02-12] MEDS: SENOKOT 17.2 MG PO ×2 (08:52→21:07)
[2024-02-12] MEDS: ABILIFY 5 MG PO (08:53)
[2024-02-12] MEDS: COLACE 100 MG PO ×2 (08:53→21:07)
[2024-02-12] MEDS: COLCHICINE 0.6 MG PO (08:53)
[2024-02-12] MEDS: ASPIRIN 325 MG PO (08:54)
[2024-02-12] MEDS: CRESTOR 20 MG PO (08:54)
[2024-02-12] MEDS: TYLENOL 1000 MG PO ×3 (08:54→21:08)
[2024-02-12] MEDS: NEUTRA-PHOS POWDER PACKET 250 MG PO ×4 (10:32→21:07)
--- NOTE | 2024-02-12 10:33 | PTCARENOTE ---
pt notified Md that she was in 8/10 pain. When nurse entered room and was going to administered oxycodone she stated she had no pain and it had 'settled' and she did not want anything, that she does not do well on pain meds.
--- NOTE | 2024-02-12 10:42 | CM ---
Per All scripts no beds available at [facility], Patric did not answer as of yet. CM will request additional referrals and send via all scripts.
[2024-02-12] MEDS: PROTONIX 40 MG PO (10:49)
[2024-02-12 16:06] VITALS: BP 120/60
[2024-02-12] MEDS: DESYREL 50 MG PO (21:07)
[2024-02-12 22:33] VITALS: BP 124/62
[2024-02-13 07:01] VITALS: BP 128/64
[2024-02-13 07:10] LABS: Blood Urea Nitrogen 15 mg/dl (7-17); Calcium 8.5 mg/dl (8.4-10.2); Carbon Dioxide 33 mmol/L (22-30); Chloride 97 mmol/L (98-107); Estimated Creatinine Clearance 57 ml/min; Glucose 111 mg/dl (70-99); Magnesium 1.9 mg/dl (1.6-2.3); Phosphorus 3.2 mg/dl (2.5-4.5); Potassium 3.6 mmol/L (3.5-5.1); Sodium 140 mmol/L (135-145); eGFR > 60.00
--- NOTE | 2024-02-13 07:13 | W.PN.HOSP.TC ---
Today's Communication/Plan
-
Medically stable for discharge pending SNF rehab placement.
Assessment / Plan
Assessment / Plan
Physical Exam
General: No Apparent Distress frail appearing
HEENT: Normocephalic Atraumatic on nasal cannula supplementation
Respiratory: Clear; No Wheezes; non-labored respiration
Cardiac: S1/S2 and Regular Rhythm
GI: Soft and Non Tender
Musculoskeletal: No Edema
Skin: Warm and Dry; No Rash
Neuro: AOx1 oriented only to self
Psych: Apparent Dementia, calm, pleasant, cooperative
88F Dementia resident of memory care unit, HTN, HLD presents to the ER complaining of right knee pain. No report of fall.
Right Knee X-Ray
IMPRESSION:
No acute osseous abnormality.
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
Pelvis CT:
IMPRESSION:
Displaced right femoral neck fracture.
Colonic diverticulosis.
Displaced Right Femoral Neck Fracture
-med/surg admit
-Ortho eval appreciated s/p right hip hemiarthroplasty 02/09 WBAT RLE w/ posterior precautions
-pain control standing oral tylenol, PRN oxycodone Dilaudid as per Orthopedic
-ASA DVT ppx 28 days (4 wks) as per Orthopedic
-held MANGLE TENDER Lasix while NPO, resumed with diet.
Dementia
-fall precautions
HLD
-MANGLE TENDER statin
Leukocytosis stress reactive since resolved without need for abx
PT/OT appreciated SNF rehab
Full Code
Medically stable for discharge pending SNF rehab placement
Discussed with patient and patient's son Bryce
I spent a total of 35 minutes with the patient or on the floor. More than 50% of this time involved counseling and coordination of care.
Anticipated Discharge: Within 24 hours
Subjective/Interval History
-
Date of Service: February 13, 2024
No acute distress. Appears comfortable at this time. Pain well controlled
Objective Data
-
Labs:
Laboratory Results
02/13/24
04:53
WBC Pending
Hgb Pending
Hct Pending
Plt Count Pending
Sodium 140
Potassium 3.6
Chloride 97 L
Carbon Dioxide 33 H
BUN 15
Creatinine 0.5 L
Glucose 111 H
Calcium 8.5
Vital Signs:
Vital Signs
Temp Pulse Resp BP Pulse Ox
97.8 F 72 18 124/62 98
02/12/24 22:33 02/12/24 22:33 02/12/24 22:33 02/12/24 22:33 02/12/24 22:33
I&O
02/12/24 02/13/24 02/14/24
06:59 06:59 06:59
Intake Total 720 / 720 720 / 720
Balance 720 / 720 720 / 720
[2024-02-13] MEDS: NEUTRA-PHOS POWDER PACKET 250 MG PO ×4 (07:34→22:53)
[2024-02-13] MEDS: VITAMIN B-12 1000 MCG PO (07:34)
[2024-02-13] MEDS: COLCHICINE 0.6 MG PO (07:35)
[2024-02-13] MEDS: TYLENOL 1000 MG PO ×3 (07:35→22:53)
[2024-02-13] MEDS: SENOKOT 17.2 MG PO ×2 (07:35→20:39)
[2024-02-13] MEDS: PROTONIX 40 MG PO (07:35)
[2024-02-13] MEDS: COLACE 100 MG PO ×2 (07:36→20:39)
[2024-02-13] MEDS: CRESTOR 20 MG PO (07:36)
[2024-02-13] MEDS: LASIX 20 MG PO (07:36)
[2024-02-13] MEDS: VITAMIN D3 (cholecalciferol) 50 MCG PO (07:37)
[2024-02-13] MEDS: ABILIFY 5 MG PO (07:37)
[2024-02-13] MEDS: ASPIRIN 325 MG PO (07:37)
[2024-02-13 08:01] LABS: Hematocrit 35.1 % (37.0-47.0); Hemoglobin 11.4 g/dL (12.0-16.0); Mean Corp Hgb Conc. 32.5 g/dL (33.0-37.0); Mean Corpuscular Hgb 30.2 pg (27.0-31.0); Mean Corpuscular Volume 93.1 fL (81.0-99.0); Mean Platelet Volume 9.7 fL (7.4-10.4); Platelet Count 285 10^3/uL (130-400); Red Blood Cell Count 3.77 10^6/uL (4.20-5.40); Red Cell Dist. Width 16.7 % (11.5-14.5); White Blood Cell Count 8.2 10^3/uL (4.8-10.8)
[2024-02-13 09:43] VITALS: BP 117/60; PULSE 84
[2024-02-13 15:02] VITALS: BP 124/59
[2024-02-13] MEDS: DESYREL 50 MG PO (22:53)
[2024-02-13 23:01] VITALS: BP 136/63
[2024-02-14] MEDS: SENOKOT 17.2 MG PO (08:26)
[2024-02-14] MEDS: TYLENOL 1000 MG PO ×3 (08:26→21:02)
[2024-02-14] MEDS: CRESTOR 20 MG PO (08:26)
[2024-02-14] MEDS: PROTONIX 40 MG PO (08:26)
[2024-02-14] MEDS: COLCHICINE 0.6 MG PO (08:26)
[2024-02-14] MEDS: ASPIRIN 325 MG PO (08:27)
[2024-02-14] MEDS: COLACE 100 MG PO ×2 (08:27→21:02)
[2024-02-14] MEDS: ABILIFY 5 MG PO (08:27)
[2024-02-14] MEDS: VITAMIN D3 (cholecalciferol) 50 MCG PO (08:27)
[2024-02-14] MEDS: NEUTRA-PHOS POWDER PACKET 250 MG PO ×4 (08:28→21:03)
[2024-02-14] MEDS: VITAMIN B-12 1000 MCG PO (08:28)
[2024-02-14] MEDS: LASIX 20 MG PO (08:38)
[2024-02-14 08:39] VITALS: BP 131/75
--- NOTE | 2024-02-14 10:08 | CM ---
Addendum entered by Ning Hernández 02/14/24 14:50:
No beds at [facility] per Gloria
Spoke with pts son - obtained additional choices
Referrals sent in Care Port
Plan - SNF when bed obtained
Original Note:
Case Management following for discharge planning
Pt medically ready for discharge
Riccardo Araiza at [facility] - no beds
LM with Gloria at [facility] - waiting on return call
Will discuss other options with Pts son
Plan - snf when bed obtained
--- NOTE | 2024-02-14 11:54 | W.PN.HOSP.TC ---
Today's Communication/Plan
-
Medically stable for DC pending bed availability.
Assessment / Plan
Assessment / Plan
Assessment:
Displaced Right Femoral Neck Fracture
- s/p Right hip hemiarthroplasty 02/09
- Weightbearing as tolerated to right lower extremity; posterior hip precautions. Ambulate with assistive device
- pain control
- ASA for DVT ppx
- OP Ortho f/u in 2 weeks
Hx of Dementia, unknown subtype
- fall precautions
- on Abilify/Trazodone
HLD
- MACHINE MARKER statin
Leukocytosis stress reactive since resolved without need for abx
DVT ppx: ASA
Code: Full
Dispo: to SNF when bed available. Medically stable. d/w CM.
Anticipated Discharge: 24 - 48 hours
Subjective/Interval History
-
Date of Service: February 14, 2024
no new complaints presently
Objective Data
-
Vital Signs:
Vital Signs
Temp Pulse Resp BP Pulse Ox
98.9 F 107 14 131/75 95
02/14/24 08:39 02/14/24 08:39 02/14/24 08:39 02/14/24 08:39 02/14/24 08:39
I&O
02/13/24 02/14/24 02/15/24
06:59 06:59 06:59
Intake Total 720 / 720 240 / 240
Balance 720 / 720 240 / 240
Physical Exam
-
General: No Apparent Distress
HEENT: Normocephalic and Atraumatic
Respiratory: Negative Wheezes
Cardiac: Regular Rhythm and S1/S2
GI: Soft
Neuro: Awake and Alert
Psych: Calm, Confused and Apparent Dementia
Data Reviewed
-
Total Time Spent with Patient (in minutes): 42
Labs: Labs Reviewed by me
[2024-02-14 12:40] VITALS: BP 119/64; PULSE 94; O2SAT 99
[2024-02-14 15:43] VITALS: BP 121/57; BP 134/70; PULSE 108; O2SAT 98
--- NOTE | 2024-02-14 16:07 | PN.CDI ---
CDI
- -
CDI:
Physician Documentation Request
Admit Date: 02/09/24 14:45
Dear Doctor Lindsey,
Please review the following and provide your response in the progress notes.
Clinical Indicators:
88 yo woman with Hx of dementia admitted with right knee pain; displaced right femoral neck fracture. No report of fall.
Hip Xray: 'Bony demineralization.'
Pt's medication list includes cholecalciferol (vitamin D3) 50 mcg (2,000 unit) capsule (Vitamin D3) 50 mcg PO DAILY
Please provide further specificity regarding the diagnosis of fracture:
Pathological due to osteoporosis
Pathological due to other disease (please specify)
Traumatic
Combination of pathological and traumatic
Other
Use of terms such as suspected, likely, concern for, or probable (associated with a specific diagnosis that is being evaluated, monitored, or treated as if it exists) are acceptable and can be coded in the inpatient setting, when documented at the
time of discharge.
Thank you,
Danielle Finch RN, BSN
CDI Specialist
Available via [employer]
Please use your independent medical judgment in providing your response.
[2024-02-14] MEDS: SENOKOT PO (21:01)
[2024-02-14] MEDS: DESYREL 50 MG PO (21:02)
[2024-02-14] MEDS: FLUSH (NSS) 1 FLUSH IV (21:08)
--- NOTE | 2024-02-14 22:29 | W.PN.UPDATE ---
Update Note
Progress Note Update
This patient's fracture was both traumatic and pathologic. Her diffuse osteopenia was a contributing to developing the fracture after a presumed fall.
[2024-02-14 23:02] VITALS: BP 128/57
[2024-02-15 08:00] VITALS: BP 139/71
[2024-02-15] MEDS: VITAMIN B-12 1000 MCG PO (08:24)
[2024-02-15] MEDS: SENOKOT PO (08:24)
[2024-02-15] MEDS: ABILIFY 5 MG PO (08:25)
[2024-02-15] MEDS: VITAMIN D3 (cholecalciferol) 50 MCG PO (08:25)
[2024-02-15] MEDS: ASPIRIN 325 MG PO (08:25)
[2024-02-15] MEDS: COLACE 100 MG PO (08:25)
[2024-02-15] MEDS: TYLENOL 1000 MG PO (08:25)
[2024-02-15] MEDS: LASIX 20 MG PO (08:25)
[2024-02-15] MEDS: PROTONIX 40 MG PO (08:26)
[2024-02-15] MEDS: NEUTRA-PHOS POWDER PACKET 250 MG PO ×2 (08:26→12:20)
[2024-02-15] MEDS: COLCHICINE 0.6 MG PO (08:26)
[2024-02-15] MEDS: CRESTOR 20 MG PO (08:26)
--- NOTE | 2024-02-15 10:44 | CM ---
Addendum entered by Ethel Kwon 02/15/24 11:16:
Spoke with Sylvie akufman - Bed available at [facility] today.
Son/patient agreeable.
IMM explained to son.
[facility]
Report #: [phone]
Fax #:[phone]
Original Note:
No bed available at [facility] today.
LM with AZAR Spivey - Spoke with son Bryce & added [facility] referral in [facility].
Called Sylvie kaufman who will look at referral & call CM
PLAN: SNF, pending bed availability
--- NOTE | 2024-02-15 12:00 | W.PN.HOSP.TC ---
Today's Communication/Plan
-
dc to SNF today
Assessment / Plan
Assessment / Plan
Assessment:
Displaced Right Femoral Neck Fracture
- s/p Right hip hemiarthroplasty 02/09
- Weightbearing as tolerated to right lower extremity; posterior hip precautions. Ambulate with assistive device
- pain control
- ASA for DVT ppx
- OP Ortho f/u in 2 weeks
Hx of Dementia, unknown subtype
- fall precautions
- on Abilify/Trazodone
HLD
- HEMATOLOGY SUPERVISOR statin
Leukocytosis stress reactive since resolved without need for abx
DVT ppx: ASA
Code: Full
Dispo: to SNF today. Bed available.
More than 30 minutes spent in discharge including
Final examination of the patient
Summarizing hospital stay
Instructions for continuing care to all relevant caregivers
Preparation of discharge records, prescriptions, and referral forms
Total time spent (in minutes):41
Anticipated Discharge: Today
Subjective/Interval History
-
Date of Service: February 15, 2024
no overnight events
Objective Data
-
Vital Signs:
Vital Signs
Temp Pulse Resp BP Pulse Ox
97.7 F 70 16 139/71 100
02/15/24 08:00 02/15/24 08:00 02/15/24 08:00 02/15/24 08:25 02/15/24 08:24
I&O
02/14/24 02/15/24 02/16/24
06:59 06:59 06:59
Intake Total 240 / 240 600 / 600
Balance 240 / 240 600 / 600
Physical Exam
-
General: No Apparent Distress
HEENT: Normocephalic
Respiratory: Negative Wheezes
Cardiac: Regular Rhythm and S1/S2
GI: Soft
Neuro: Awake and Alert
Psych: Calm
Data Reviewed
-
Total Time Spent with Patient (in minutes): 41
Labs: Labs Reviewed by me
--- NOTE | 2024-02-15 12:07 | W.DS.TRANS ---
DC Summary - [employer]
-
Discharge Instructions:
Discharge Diagnosis/Procedures Displaced Right Femoral Neck Fracture s/p Right
hip hemiarthroplasty 02/09
Diet Regular
Activity As tolerated
Additional Activity Weightbearing as tolerated to right lower
extremity; posterior hip precautions. Ambulate
with assistive device
Driving Restrictions No driving
Bathing Restrictions None
Other Services OT,PT
Instructions:
Stand-Alone Forms:
Changes to Home Medications: No
Discharge Medications:
DC Medications w/original date entered in [employer]
aripiprazole 5 mg tablet 5 mg PO DAILY Mental Health/Anxiety 02/09/24
cholecalciferol (vitamin D3) 50 mcg (2,000 unit) capsule (Vitamin D3) 50 mcg PO DAILY Supplement 02/09/24
cyanocobalamin (vitamin B-12) 1,000 mcg tablet (Vitamin B-12) 1,000 mcg PO DAILY Supplement 02/09/24
docusate sodium 100 mg capsule 100 mg PO DAILY Constipation 02/09/24
furosemide 20 mg tablet 20 mg PO DAILY Fluid Retention/Swelling 02/09/24
polyethylene glycol 3350 17 gram oral powder packet (Miralax) 17 g PO DAILYPRN PRN constipation 02/09/24
rosuvastatin 20 mg tablet 20 mg PO DAILY High Cholesterol 02/09/24
trazodone 50 mg tablet 50 mg PO HS sleep 02/09/24
acetaminophen 500 mg tablet (Tylenol Extra Strength) 1,000 mg (2 x 500 mg) PO TID #60 tabs 02/15/24
aspirin 325 mg tablet 325 mg PO DAILY #30 tabs 02/15/24
colchicine 0.6 mg tablet 0.6 mg PO DAILY #30 tabs 02/15/24
pantoprazole 40 mg tablet,delayed release 40 mg PO DAILY #30 tabs 02/15/24
Home Medication Changes
Pending Results: No
Total time spent discharging patient (in min): 41
[2024-02-15] MEDS: PREVNAR 20 0.5 ML IM (12:23)
[2024-02-15] MEDS: FLUAD (65 yr+) 2024-2025 FORMULA 0.5 ML IM (12:26)
[2024-02-15 14:00] VITALS: BP 147/84
== END 2024-02-15 15:15 | DRG 522 ==
LOC: 2 SOUTH 14:45
PROVIDERS: Internal Medicine; Registered Nurse; ADMITTING PHYSICIAN Student in an Organized Health Care Education/Training Program; ATTENDING PHYSICIAN Internal Medicine; CONSULT PHYSICIAN Student in an Organized Health Care Education/Training Program; EMERGENCY PHYSICIAN Student in an Organized Health Care Education/Training Program
PROC: 0SRR0J9 Replacement of Right Hip Joint, Femoral Surface with Synthetic Substitute, Cemented, Open Approach (ICD-10-PCS; 2024-02-10)
DX: M84.451A Pathological fracture, right femur, initial encounter for fracture (principal); F03.C0 Unspecified dementia, severe, without behavioral disturbance, psychotic disturbance, mood disturbance, and anxiety; E78.5 Hyperlipidemia, unspecified; I10 Essential (primary) hypertension; M19.90 Unspecified osteoarthritis, unspecified site; D72.829 Elevated white blood cell count, unspecified; M11.20 Other chondrocalcinosis, unspecified site; K57.30 Diverticulosis of large intestine without perforation or abscess without bleeding
CPT/HCPCS: 71046; 72192; 73502; 73564; 80048; 80053; 83735; 84100; 85025; 85027; 85610; 90662; 90677; 93005; 97116; 97163; 97167; 97530; 97535; 99285; C1713; C1776; G0008; G0009